=== PATIENT | male | born 1960 | race Caucasian/White ===

== ENCOUNTER 2021-02-05 15:07 | Emergency (ER) | payer OTHER ==
[~2021-02-05] VITALS: Ht 188 cm; Wt 77.1 kg
--- NOTE | 2021-02-06 00:47 | EKG ---
[facility] [address] [facility] [place] [address] Signed Sinus tachycardia with occasional premature ventricular complexes Possible Left atrial enlargement Inferior infarct , age undetermined Abnormal ECG No previous ECGs available Confirmed by MOY RAINES MD ([id number]) on 02/06/2021 12:47:01 AM Electronically Signed By: MOY RAINES MD 02/06/21 0047 PATIENT NAME: ARSALAN MIDDLETON Electrocardiogram DATE OF : 64 PHYSICIAN: MOY RAINES MD REPORT #: [id number] REPORT IS CONFIDENTIAL AND NOT TO BE RELEASED WITHOUT AUTHORIZATION
== END 2021-02-05 19:30 | disposition home or self-care (01) ==
LOC: ED 15:07
DX: K21.9 Gastro-esophageal reflux disease without esophagitis (principal); I10 Essential (primary) hypertension; I25.2 Old myocardial infarction; F17.200 Nicotine dependence, unspecified, uncomplicated; Z88.8 Allergy status to other drugs, medicaments and biological substances; Z20.822 Contact with and (suspected) exposure to COVID-19
CPT/HCPCS: 71045; 80053; 83735; 84484; 85025; 93005; 93010; 99285-25; U0003

== ENCOUNTER 2024-12-30 08:51 | Emergency (ER) | payer OTHER ==
[~2024-12-30] VITALS: Ht 188 cm; Wt 77.2 kg
[2024-12-30 09:12] LABS: BASOPHILS 0.8 % (0.2-1.2); EOSINOPHILS 1.9 % (0.8-7.0); HEMATOCRIT 53.1 % (40.1-51.0); HEMOGLOBIN 18.5 g/dL (13.7-17.5); LYMPHOCYTES 25.7 % (21.8-53.1); MCH 30.4 PG (25.7-32.2); MCHC 34.8 g/dL (32.3-36.5); MCV 87.3 fL (79.0-92.2); MONOCYTES 11.1 % (5.3-12.2); NEUTROPHILS 60.2 % (34.0-67.9); PLATELET COUNT 255 K/uL (163-337); RBC 6.08 M/uL (4.63-6.08)
[2024-12-30] MEDS ORDERED: ATORVASTATIN CA80 MG PO (09:13)
[2024-12-30] MEDS ORDERED: CARVEDILOL25 MG PO (09:13)
[2024-12-30] MEDS ORDERED: LISINOPRIL10 MG PO (09:13)
[2024-12-30] MEDS ORDERED: ASPIRIN 81 MG CHEW PO ONE (09:15)
[2024-12-30 09:32] LABS: ALBUMIN/GLOBULIN RATIO 0.93 (1.1-2.4); ANION GAP 16.8 (7-21); BILIRUBIN, TOTAL 0.5 mg/dL (0.2-1.0); BUN/CREATININE RATIO 15.7 (6.0-28.6); CALCIUM 10.5 mg/dL (8.5-10.1); CREATININE, SERUM 1.21 mg/dL (0.70-1.30); POTASSIUM 3.8 mmol/L (3.5-5.1); PROTEIN, TOTAL 8.3 g/dL (6.4-8.2)
[2024-12-30 09:42] LABS: PARTIAL THROMBOPLASTIN TIME 27.3 Sec (22.9-41.3)
[2024-12-30] MEDS ORDERED: TICAGRELOR 90 MG TAB PO ONE (09:45)
[2024-12-30] MEDS ORDERED: HEParin SOD (PORCINE) 5,000 UNIT/ML VIAL IV ONE (09:45)
[2024-12-30] MEDS ORDERED: HEPARIN SOD,PORK IN 0.45% NACL 500 ML IV SCH (09:45)
[2024-12-30 09:46] LABS: INR 1.07 (0.80-1.30); PROTIME 13.2 Sec (11.2-14.2)
[2024-12-30] MEDS ORDERED: MORPHINE SULFATE 4 MG/ML VIAL IV ONE (10:45)
[2024-12-30] MEDS ORDERED: ondansetron HCL 4 MG/2 ML VIAL IV ONE (10:45)
[2024-12-30 11:28] VITALS: BP 166/121
--- NOTE | 2025-01-01 12:12 | EKG ---
[facility] [address] [facility] [place] [address] Signed Sinus rhythm with occasional premature ventricular complexes Inferior infarct (cited on or before 05-FEB-2021) ACUTE ME / STEMI Consider right ventricular involvement in acute inferior infarct Abnormal ECG When compared with ECG of 05-FEB-2021 15:18, Non-specific change in ST segment in Inferior leads ST more depressed in Lateral leads T wave inversion no longer evident in Inferior leads Confirmed by Rolo Wells DO ([id number]) on 01/01/2025 12:12:29 PM Electronically Signed By: ROLO WELLS DO 01/01/25 1212 PATIENT NAME: ARSALAN MIDDLETON Electrocardiogram DATE OF : 64 PHYSICIAN: ROLO WELLS DO REPORT #: [id number] REPORT IS CONFIDENTIAL AND NOT TO BE RELEASED WITHOUT AUTHORIZATION
--- NOTE | 2025-01-01 12:13 | EKG ---
[facility] [address] [facility] [place] [address] Signed Sinus rhythm with sinus arrhythmia with occasional premature ventricular complexes Inferior infarct (cited on or before 05-FEB-2021) ST \T\ T wave abnormality, consider lateral ischemia Abnormal ECG When compared with ECG of 30-DEC-2024 08:48, (Unconfirmed) No significant change was found Confirmed by Rolo Welsl DO ([id number]) on 01/01/2025 12:12:56 PM Electronically Signed By: ROLO WELLS DO 01/01/25 1213 PATIENT NAME: ARSALAN MIDDLETON Electrocardiogram DATE OF : 64 PHYSICIAN: ROLO WELLS DO REPORT #: [id number] REPORT IS CONFIDENTIAL AND NOT TO BE RELEASED WITHOUT AUTHORIZATION
== END 2024-12-30 11:28 | disposition short-term general hospital (02) ==
LOC: ED 08:51
PROVIDERS: Emergency Medicine
DX: I21.4 Non-ST elevation (NSTEMI) myocardial infarction (principal); I10 Essential (primary) hypertension; F17.200 Nicotine dependence, unspecified, uncomplicated; Z88.8 Allergy status to other drugs, medicaments and biological substances; Z79.899 Other long term (current) drug therapy; I25.119 Atherosclerotic heart disease of native coronary artery with unspecified angina pectoris
CPT/HCPCS: 36415; 71045; 71275; 74174; 80053; 83880; 84484; 85025; 85379; 85610; 85730; 93005; 93010; 99285-25; A9270; J1644; J2270; J2405; Q9967